=== PATIENT | male | born 1985 | race Caucasian/White ===

== ENCOUNTER 2017-11-10 19:37 | Emergency (ER) | payer BC ==
[~2017-11-10] VITALS: Wt 83.9 kg
[~2017-11-10 19:37] MED LIST: ATARAX25 MG PO; BACTRIM DS 8001 TA1 PO; BACTROBAN OINT22 GM PO; CLARITIN10 MG PO; LIDEX0.05% T; MEDROL DOSEPAK4 MG PO; MOTRIN800 MG PO; NKHM; PREDNICOT20 MG PO; VISTARIL25 M1 PO
[2017-11-10] MEDS ORDERED: Motrin,Rufen800 MG PO (20:22)
[2017-11-10] MEDS ORDERED: CLINDAMYCIN HC300 MG PO (20:22)
== END 2017-11-10 20:45 | disposition home or self-care (01) ==
LOC: ED 19:37
DX: K08.89 Other specified disorders of teeth and supporting structures (principal)